=== PATIENT | female | born 1975 | race Caucasian/White ===

== ENCOUNTER 2018-06-29 13:01 | Emergency (ER) | payer BC ==
[~2018-06-29] VITALS: Ht 175.3 cm; Wt 84.4 kg
[2018-06-29 19:17] VITALS: BP 130/90
== END 2018-06-29 18:10 | disposition home or self-care (01) ==
LOC: FSED 13:01
DX: R07.89 Other chest pain (principal); R42 Dizziness and giddiness; Z87.891 Personal history of nicotine dependence
CPT/HCPCS: 80053; 81003; 84484; 85025; 93005; 99284